=== PATIENT | female | born 1945 | race African-American/Black ===

== ENCOUNTER 2016-05-24 16:29 | Emergency (ER) | payer OTHER ==
[~2016-05-24] VITALS: Ht 167.6 cm; Wt 81.7 kg
[2016-05-24 16:32] VITALS: BP 167/92
[2016-05-24] MEDS ORDERED: MEDROLDOSEPACK PO (17:29)
== END 2016-05-24 18:04 | disposition home or self-care (01) ==
LOC: ER 16:29
DX: T42.6X5A Adverse effect of other antiepileptic and sedative-hypnotic drugs, initial encounter (principal); I10 Essential (primary) hypertension; Z88.0 Allergy status to penicillin; Z88.6 Allergy status to analgesic agent; Y92.9 Unspecified place or not applicable